=== PATIENT | female | born 1965 | race Caucasian/White ===

== ENCOUNTER 2023-12-22 04:24 | Day surgery (SDC) | payer BC ==
[2023-12-15 15:17] VITALS: BMI 35.6
[2023-12-22 13:59] VITALS: PULSE 70
[2023-12-22 14:01] VITALS: BP 113/64; RESP 15
[2023-12-22 14:06] VITALS: TEMP 98
== END 2023-12-22 14:04 | disposition home or self-care (01) ==
LOC: JASU-ENDO 04:24
PROVIDERS: ATTEND Internal Medicine Gastroenterology
PROC: 0DBN8ZX Excision of Sigmoid Colon, Via Natural or Artificial Opening Endoscopic, Diagnostic (ICD-10-PCS; 2023-12-22)
PROC: 0DBP8ZX Excision of Rectum, Via Natural or Artificial Opening Endoscopic, Diagnostic (ICD-10-PCS; 2023-12-22)
PROC: 0DBK8ZX Excision of Ascending Colon, Via Natural or Artificial Opening Endoscopic, Diagnostic (ICD-10-PCS; principal; 2023-12-22 12:00)
DX: Z12.11 Encounter for screening for malignant neoplasm of colon (principal); D12.5 Benign neoplasm of sigmoid colon; D12.8 Benign neoplasm of rectum; D12.2 Benign neoplasm of ascending colon; K57.30 Diverticulosis of large intestine without perforation or abscess without bleeding; Z86.010 Personal history of colon polyps
CPT/HCPCS: 88305-TC